=== PATIENT | male | born 1985 | race Hispanic/Latino ===

== ENCOUNTER 2018-04-21 15:37 | Emergency (ER) | payer SELFPAY ==
[~2018-04-21] VITALS: Ht 177.8 cm; Wt 104.3 kg
--- OUTSIDE RECORDS SUMMARY | 2018-04-21 15:40 | XMS REPORT ---
[facility] Address Unknown Phone Unavailable Care Team Providers Care Envelope Patternmaker Name Role Phone Unavailable Unavailable Problems This patient has no known problems. Allergies, Adverse Reactions, Alerts This patient has no known allergies or adverse reactions. Medications This patient has no known medications. Encounters Start Date/Time End Date/Time Encounter Type Admission Type Attending [facility] Facility Care Department Encounter ID 2017-11-28 14:42:40 2017-11-28 14:42:40 Outpatient [facility] [id number] 2017-11-21 14:51:58 2017-11-21 14:51:58 Outpatient [facility] [id number] 2017-11-21 14:03:49 2017-11-21 14:03:49 Outpatient [facility] [id number] 2017-08-28 00:00:00 2017-08-28 00:00:00 Outpatient [facility] [id number] 2017-07-11 08:22:31 2017-07-11 08:22:31 Outpatient [facility] [id number] 2017-07-03 00:00:00 2017-07-03 00:00:00 Outpatient [facility] [id number] 2017-06-26 06:31:00 2017-06-26 06:31:00 Outpatient [facility] [id number] 2017-06-26 00:00:00 2017-06-26 00:00:00 Outpatient [facility] [id number] 2017-06-24 09:00:23 2017-06-24 09:00:23 Outpatient [facility] [id number] 2017-06-24 00:00:00 2017-06-24 00:00:00 Outpatient [facility] [id number] 2017-06-21 13:16:41 2017-06-21 13:16:41 Outpatient [facility] [id number] 2017-05-31 13:07:09 2017-05-31 13:07:09 Outpatient [facility] [id number] 2017-05-30 15:30:49 2017-05-30 15:30:49 Outpatient [facility] [id number] 2017-04-16 00:00:00 2017-04-16 00:00:00 [facility] [id number] 2017-04-02 14:15:32 2017-04-02 14:15:32 Outpatient [facility] [id number] 2017-02-26 11:43:00 2017-02-26 11:43:00 Emergency [facility] [id number] 2017-02-25 21:08:48 2017-02-25 21:08:48 Emergency [facility] [id number] 2017-02-06 13:09:56 2017-02-06 13:09:56 Outpatient [facility] [id number] 2017-01-30 00:00:00 2017-01-30 00:00:00 Outpatient [facility] [id number] 2017-01-24 00:00:00 2017-01-24 00:00:00 Outpatient [facility] [id number] 2017-01-24 00:00:00 2017-01-24 00:00:00 Outpatient [facility] [id number] 2016-11-29 12:36:47 2016-11-29 12:36:47 Outpatient [facility] [id number] 2016-11-21 00:00:00 2016-11-21 00:00:00 [facility] [id number]
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
--- OUTSIDE RECORDS SUMMARY | 2018-04-21 15:40 | XMS REPORT | Summary of Care ---
Author Author [facility] Organization [facility] Address Unknown Phone Unavailable Encounter MARCOS Shahid(JED) [id number] Date(s): 08/19/15 - 08/19/15 [facility] [address] [place] [address]- [phone] Discharge Disposition: Home Attending Physician: Alyssa Rogers DO Vital Signs Most recent to 1 2 oldest [Reference Range]: Height 177.8 cm (08/19/15 1:20 PM) Temperature Oral 97.7 DegF 97.5 DegF [96.4-99.1 DegF] (08/19/15 3:01 PM) (08/19/15 1:20 PM) Blood Pressure 131/74 mmHg 153/88 mmHg [90-140/60-90 mmHg] (08/19/15 3:01 PM) *HI* (08/19/15 1:20 PM) Respiratory Rate 17 BRMIN 18 BRMIN [14-20 BRMIN] (08/19/15 3:01 PM) (08/19/15 1:20 PM) Peripheral Pulse 69 bpm 92 bpm Rate [60-100 bpm] (08/19/15 3:01 PM) (08/19/15 1:20 PM) Weight 104.545 kg (08/19/15 1:20 PM) Body Mass Index 33.07 m2 (08/19/15 1:20 PM) Problem List Condition Effective Dates Status Health Status Informant Asthma(Confirmed) Active Allergies, Adverse Reactions, Alerts Substance Reaction Severity Status NKDA Active Medications ibuprofen 800 mg, Route: PO, Drug form: TAB, ONCE, Dosing Weight 104.545, kg, Priority: ST AT, Start date: 08/19/15 13:23:00, Stop date: 08/19/15 13:23:00 Start Date: 08/19/15 Stop Date: 08/19/15 Status: Completed Ultram 50 mg oral tablet 100 mg=2 tab, PO, Q6H, PRN pain, X 3 day, # 24 tab, 0 Refill(s) Start Date: 08/19/15 Stop Date: 08/22/15 Status: Ordered Results No data available for this section Immunizations No data available for this section Procedures No data available for this section Social History Social History Type Response Smoking Status Never smoker; Exposure to Tobacco Smoke None; Cigarette Smoking Last 365 Days No; Reg Smoking Cessation Counseling No Assessment and Plan No data available for this section
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
--- NOTE | 2018-04-21 18:42 | Diagnostic Imaging Report ---
EXAM: CTs without contrast of the head, face and cervical spine History: Fall, pain Comparison studies:None Technique: Axial images were obtained from the brain, face and cervical spine. Coronal and sagittal reconstructions obtained from the axial data. Dose modulation, iterative reconstruction, and/or weight based adjustment of the mA/kV was utilized to reduce the radiation dose to as low as reasonably achievable. Intravenous contrast: None Findings: Head CT: Scalp/skull: No abnormalities. No fractures, blastic or lytic lesions. Extra-axial spaces: No masses. No fluid collections. Brain sulci: Appropriate for age. Ventricles: Normal in size and configuration. No hydrocephalus. Parenchyma: No abnormal densities. No masses, hemorrhage, acute or chronic cortical vascular insults. Sellar/suprasellar region: No abnormalities Craniocervical junction: Patent foramen magnum. No Chiari one malformation. Maxillofacial CT: Soft tissues: Mild swelling of the bilateral preseptal soft tissues on the left side of the face, over the left mandible and in the left preauricular soft tissues. Bones: No fractures or bony abnormalities. . Orbits: No abnormalities. Paranasal sinuses: Clear. Cervical spine CT: Airway: Patent. Fractures: None. Soft tissues: No gross abnormalities. Atlantoaxial articulation: Intact. Alignment: Normal lordosis. No scoliosis. Cervicomedullary junction: No abnormalities. The foramen magnum is patent. Vertebrae: No infection or neoplasm. Degenerative changes: Mild facet arthropathy on the right at C2-C3 and bilaterally at C3-C4. No canal or foraminal stenosis. Incidental findings: None. IMPRESSION: Head CT: No intracranial abnormalities. Facial CT: 1. No fractures. 2. Swelling of the in the preseptal soft tissues, left side of the face and in the left periauricular soft tissues. Cervical spine CT: 1. No acute cervical abnormalities. 2. Cannot adequately evaluate for ligament, spinal cord and or vascular abnormalities. Preliminary report dictated by Dr. Amy Wells, Neuroradiology Fellow on 04/21/2018 at 1842 hours. A final report by the attending radiologist will follow. The images and preliminary report were reviewed and signed by Dr. Kaelyn Holloway, neuroradiology faculty, on on 04/21/2018 at 1937 hours. Signed by: Dr. Kaelyn Holloway M.D. on 04/21/2018 7:37 PM
[2018-04-21] MEDS ORDERED: ONDANSETRON HCL 4 MG ORAL DISINTEGRATING TAB PO ONE (18:45)
[2018-04-21] MEDS ORDERED: HYDROCODONE/APAP 10MG-325MG TAB PO ONE (18:45)
[2018-04-21] MEDS ORDERED: MECLIZINE HCL 12.5 MG TAB PO ONE (19:00)
[2018-04-21] MEDS ORDERED: DEXAMETHASONE SOD PHOS INJ 4 MG/ML VIAL IM ONE (21:00)
[2018-04-21 21:24] VITALS: BP 126/70
== END 2018-04-21 21:37 | disposition home or self-care (01) ==
LOC: ER 15:37
DX: S00.83XA Contusion of other part of head, initial encounter (principal); S01.81XA Laceration without foreign body of other part of head, initial encounter; R51 Headache; S00.33XA Contusion of nose, initial encounter; S16.1XXA Strain of muscle, fascia and tendon at neck level, initial encounter; R11.2 Nausea with vomiting, unspecified; Y04.8XXA Assault by other bodily force, initial encounter; Y92.488 Other paved roadways as the place of occurrence of the external cause; J45.909 Unspecified asthma, uncomplicated; K51.90 Ulcerative colitis, unspecified, without complications
CPT/HCPCS: 70450; 70486; 72125; 99283; J1100; Q0162